=== PATIENT | male | born 1965 | race Caucasian/White ===

== ENCOUNTER → 2020-04-18 13:23 | Outpatient (BNVA) | payer OTHER, SELFPAY | PROVIDERS: PCP Internal Medicine; Visit Provider Internal Medicine | DX: R07.2 Precordial pain (principal); I25.10 Atherosclerotic heart disease of native coronary artery without angina pectoris; I10 Essential (primary) hypertension; E78.5 Hyperlipidemia, unspecified; Z95.1 Presence of aortocoronary bypass graft | CPT/HCPCS: 93005; 99212 ==

== ENCOUNTER 2020-04-19 11:59 | Outpatient (REF) | payer OTHER, SELFPAY ==
--- NOTE | ~2020-04-19 | XR_ITS ---
EXAMINATION: XR KNEE, RIGHT CLINICAL INFORMATION: Right knee pain. COMPARISON: None TECHNIQUE: Three views of the right knee. FINDINGS: There is no fracture, dislocation, or destructive process. There is [id number] suprapatellar effusion. Hoffa's fat pad appears normal. There is no joint narrowing or erosive change or visible chondrocalcinosis. Deep infrapatellar recess is preserved. Axial view patella shows no lateralization or tilting. XR/XR knee RT 3V IMPRESSION: [id number] suprapatellar effusion. No bony abnormality.
--- NOTE | ~2020-04-19 | XR_ITS ---
EXAMINATION: XR CHEST CLINICAL INFORMATION: R07.2 - Precordial pain COMPARISON: None TECHNIQUE: 2 views of the chest were obtained. FINDINGS: The lungs are clear. There is no pneumothorax, pleural reaction, airspace consolidation, or effusion. The heart is normal in size. The costophrenic sulci are clear. The hilar and mediastinal contours are normal. No acute bony abnormality. There are sternotomy wires present. XR/XR chest 2V IMPRESSION: Prior median sternotomy. Normal chest.
[2020-04-19 13:24] LABS: Alanine Aminotransferase 43 U/L (0-40); Albumin Level 4.4 g/dL (3.5-5.0); Alkaline Phosphatase 91 U/L (39-117); Aspartate Amino Transferase 26 U/L (5-37); Bilirubin Direct 0.3 mg/dL (0.0-0.5); Bilirubin Total 0.8 mg/dL (0.0-1.0); Cholesterol 148 mg/dL; HDL Cholesterol 46 mg/dL; LDL Cholesterol Calculated 84 mg/dl; Total Protein 7.1 g/dL (6.5-8.0); Triglycerides 93 mg/dL
== END 2020-04-19 12:00 | disposition home or self-care (01) ==
LOC: HO.LAB 11:59
PROVIDERS: Internal Medicine; PCP Internal Medicine; Visit Provider Internal Medicine
DX: R07.2 Precordial pain (principal); M25.561 Pain in right knee; Z95.1 Presence of aortocoronary bypass graft
CPT/HCPCS: 36415; 71046; 73562; 80061; 80076

== ENCOUNTER 2020-05-11 15:29 | Outpatient (REF) | payer OTHER, SELFPAY ==
--- NOTE | ~2020-05-11 | XR_ITS ---
EXAMINATION: XR SHOULDER, RIGHT CLINICAL INFORMATION: Right shoulder pain COMPARISON: Radiographs right shoulder 06/28/2019 TECHNIQUE: Right shoulder is imaged in 3 views. FINDINGS: No fracture, dislocation, destructive process. The glenohumeral joint appears normal. The acromioclavicular alignment is normal. Again, there is a borderline inferior spur at distal right clavicle. There are no visible rotator cuff calcifications. XR/XR shoulder RT min 2V IMPRESSION: 1. Borderline inferior spur distal right clavicle similar to prior study 06/28/2019. 2. No rotator cuff calcifications.
== END 2020-05-11 15:30 | disposition home or self-care (01) ==
LOC: HO.HMGCX 15:29
PROVIDERS: PCP Internal Medicine; Visit Provider Nurse Practitioner Family
DX: M25.511 Pain in right shoulder (principal)
CPT/HCPCS: 73030

== ENCOUNTER → 2020-05-24 13:52 | Outpatient (REF) | payer OTHER, SELFPAY ==
--- NOTE | 2020-05-24 13:55 | CA_ITS ---
Transthoracic Echocardiogram Patient (Last, First, Middle): Matheus Fraser, Gender: Male Date of : 1965 Age: 54 Procedure Date: 05/24/2020 Procedure Type: Transthoracic Echocardiogram Location: OP Height: 172.72 cm Weight: 108.86 kg BSA: 2.21 m2 Heart Rate: bpm BP: 130 / 80 mmHg Quality Tech: Referring MD: Michael Richard MD Cushion Installer: Pavel Tenorio MD Symptoms: I25.10 - Atherosclerotic heart disease of [place] coronary artery without angina pectoris Study Quality: Fair ECG Rhythm: Sinus Conclusions: - 1. Normal LV systolic function with impaired relaxation filling abnormality with inferior inferoseptal regional wall motion abnormality 2. Normal cardiac valvular Doppler 3. Normal RV systolic pressure 4. No pericardial effusion Findings Left Ventricle Normal left ventricular size and systolic function. There is mildly increased left ventricular wall thickness. The visually estimated ejection fraction is between 60-65%. Spectral Doppler is indicative of an impaired relaxation filling pattern. E/E prime ratio is between 8 and 15 consistent with indeterminate filling pressures. Wall Motion Rest Echo Findings The basal inferior and basal inferoseptal segments are hypokinetic. All other scored wall segments showed normal motion. Right Ventricle Normal right ventricular cavity size and systolic function. Atria The left atrium is likely dilated. There is lipomatous hypertrophy of the interatrial septum. There is no evidence of interatrial shunt. The right atrium is normal in size. Aortic Valve Normal aortic valve structure and function. There is no aortic valve stenosis. There is no aortic valve regurgitation. Mitral Valve Normal mitral valve structure and function. There is trace mitral valve regurgitation. There is no mitral valve stenosis. Pulmonic Valve The pulmonic valve is likely normal. There is trace pulmonic valve regurgitation. Tricuspid Valve Normal tricuspid valve structure. There is trace tricuspid valve regurgitation. The right ventricular systolic pressure is normal. The right ventricular systolic pressure is 19 mmHg. Normal right atrial pressure. There is no evidence of pulmonary hypertension. Great Vessels All visible segments of the aorta are normal in size. The pulmonary artery was not well visualized. Venous The inferior vena cava is normal in size and collapses greater than 50% with inspiration. Pericardium/Pleural There is no evidence of pericardial effusion. Prior Study Comparison Changes noted compared to prior study dated: 09/22/2019. Inferior and inferoseptal wall motion abnormality noted Measurements 2D Linear Measurements IVSd: 1.39 0.6-0.9/0.6-1.0 cm LVIDd: 4.62 3.9-5.3/4.2-5.9 cm LVIDd Index: 2.09 2.4-3.2/2.2-3.1 cm/m2 LVIDs: 2.94 2.0-3.6 cm LVPWd: 1.30 0.7-1.1 cm Ao Root: 3.20 2.1-3.5 cm LA Diam: 4.30 2.7-3.8/3.0-4.0 cm LAIDs Index: 1.95 1.5-2.3 cm/m2 LV Mass: 303.69 67-162/88-224 g LV Mass Index: 137.41 43-95/49-115 g/m2 LVOT Diam: 2.40 3.0+(-)1.3 cm Mitral Valve MV Pk E: 0.75 MV PK A: 0.63 MV Decel Time: 296.00 E/A: 1.20 E'Lateral: 13.90 E'Medial: 10.50 E/E' Med: 7.10 E/E' Lat: 5.40 PHT: 87.00 MVA PHT: 2.53 Decel [place]: 2.53 Aortic Valve AoV Pk [place]: 1.25 AoV Mn [place]: 0.83 AoV VTI: 0.27 AoV Pk Grad: 6.00 Aov Mn Grad: 3.00 ANNAMARIE Cont.VTI: 3.25 LVOT LVOT Pk [place]: 0.89 LVOT Mn [place]: 0.53 LVOT VTI: 0.19 LVOT Pk Grad: 3.00 LVOT Mn Grad: 1.00 LVOT Diam: 2.40 LVOT Area: 4.52 Diastolic Function MV Pk E: 0.75 MV Pk A: 0.63 E/A: 1.20 E'Medial: 10.50 E/E' Med: 7.10 E' Laterial: 13.90 E/E' Lat: 5.40 Tricuspid Valve TR Pk [place]: 1.97 TR Pk Grad: 16.00 RA Press: 3.00 RVSP: 19.00 Great Vessels Aorta Ao Root-2D: 3.20 2.0-3.7 cm Ao Asc: 3.60 2.1-3.4 cm Pulmonary Valve PV Pk [place]: 1.19 Peak PV Grad: 6.00 Updated in Other Vendor System with Status of Final Pavel Tenorio MD electronically signed on 05/25/2020 5:09:51 PM with status of Final
== END ==
LOC: HO.CARD 13:52
PROVIDERS: Visit Provider Internal Medicine
DX: R07.2 Precordial pain (principal); I25.10 Atherosclerotic heart disease of native coronary artery without angina pectoris
CPT/HCPCS: 93306

== ENCOUNTER → 2020-05-31 13:14 | Outpatient (BNVA) | payer OTHER, SELFPAY | PROVIDERS: PCP Internal Medicine; Visit Provider Internal Medicine | DX: I25.10 Atherosclerotic heart disease of native coronary artery without angina pectoris (principal); R07.2 Precordial pain; I10 Essential (primary) hypertension; E78.5 Hyperlipidemia, unspecified; Z95.1 Presence of aortocoronary bypass graft | CPT/HCPCS: 99212 ==

== ENCOUNTER 2023-03-21 09:30 | Outpatient (AMB) | payer OTHER, SELFPAY ==
--- NOTE | 2023-03-21 10:25 | AM.OFFWIN_ITS ---
Intake Vital Signs 03/21/23 10:26 Height 5 ft 8 in BMI Reason not done Patient refused/unable BP 116/80 Blood Pressure Location Lt brachial Position Sitting Pulse 67 Pulse Source Pulse Oximeter Temp 97.7 F Temp Source Temporal Artery Scan Pulse Oximetry (%) 98 Oxygen Delivery Method Room Air Intake Visit Reasons: EP LFT heel pain unable to stand/balance Intake Note: pt is here today for heel pain unable to stand/balance started Friday Patient Tobacco Use Status: Never used Tobacco Allergies aspirin Allergy (Unknown, Verified 03/21/23 10:26) hx of esophageal stricture gabapentin Allergy (Unknown, Verified 03/21/23 10:26) Depression ibuprofen Allergy (Unknown, Verified 03/21/23 10:26) hx of esophageal stricture lidocaine Allergy (Unknown, Verified 03/21/23 10:) Dizziness pregabalin [From Lyrica] Allergy (Unknown, Verified 03/21/23 10:26) Depression Medication List - Last Reconciled 03/21/23 by Mercedes Saldana NP acetaminophen 1,000 mg (2 x 500 mg) PO Q6H PRN aspirin 81 mg PO DAILY atorvastatin 80 mg PO DAILY carisoprodol 250 mg PO TID PRN metoprolol tartrate 25 mg PO BID omeprazole 20 mg PO DAILY 30 days Do you need a note to return to daycare/school/sports/work: Yes HPI HPI Comments History of Present Illness Details 57 Y/O male patient who presents to Walk -in clinic with c/o left heel pain. Pt believes he might have injured it at work this past Tu. Pain is sharp and tender to touch. He is unable to put weight on the foot. 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 Mother Hypertension Heart disease Social History Alcohol intake: current Alcohol intake frequency: holidays/special occasions only Alcohol type: beer Patient Tobacco Use Status: Never used Tobacco Review of Systems Const All systems reviewed & are unremarkable except as noted in HPI and below Physical Exam Vital Signs: Last Vital Signs Temp 97.7 F 03/21/23 10:26 Pulse 67 03/21/23 10:26 BP 116/80 03/21/23 10:26 Pulse Ox 98 03/21/23 10:26 Oxygen Delivery Method Room Air 03/21/23 10:26 Extrem Right lower extremity: normal to inspection Left lower extremity: full ROM (Limited ROM left foot due to pain), no joint enlargement and foot Details: normal capillary refill, tenderness Location: of the calcaneus and edema Location: of the dorsal foot and of the calcaneus Assessment & Plan Assessment & Plan (1) Injury of left heel: Code(s): S99.922A - Unspecified injury of left foot, initial encounter Qualifiers: Encounter type: initial encounter Qualified Code(s): S99.922A - Unspecified injury of left foot, initial encounter Plan: SHELLEY Applied Joe bandage and Foot/Ankle brace in the office Xray to r/o any Fx. Orders: Orders XR foot LT 2V Today S99.922A - Unspecified injury of left foot, initial encounter Medications: New acetaminophen 1,000 mg (2 x 500 mg) PO Q6H PRN 60 tabs 0RF pain S99.922A - Unspecified injury of left foot, initial encounter Coding Level of Care Code Est Pt Level 3 (30570) Diagnoses Injury of left heel, initial encounter S99.922A Encounter type: initial encounter Time Spent (min) 20
[2023-03-21 10:26] VITALS: BP 116/80; PULSE 67; TEMP 36.5; O2SAT 98
== END 2023-03-21 11:10 | disposition home or self-care (01) ==
PROVIDERS: PCP Internal Medicine; Visit Provider Nurse Practitioner Family
DX: S99.922A Unspecified injury of left foot, initial encounter (principal)
CPT/HCPCS: 99214

== ENCOUNTER 2023-03-21 10:42 | Outpatient (REF) | payer OTHER, SELFPAY ==
--- NOTE | ~2023-03-21 | XR_ITS ---
EXAMINATION: XR FOOT, LEFT CLINICAL INFORMATION: Unspecified injury of left foot. Left foot/heel pain. COMPARISON: None available. TECHNIQUE: AP, lateral, and oblique views of the left foot. FINDINGS: The bones and soft tissues are normal. No fracture. Alignment is anatomic. Joint spaces are maintained. A small retrocalcaneal enthesophyte is seen. XR/XR foot LT 2V IMPRESSION: Small retrocalcaneal enthesophyte. No visible acute fracture, dislocation or subluxation seen.
== END 2023-03-21 10:43 | disposition home or self-care (01) ==
LOC: HO.HMGCX 10:42
PROVIDERS: Visit Provider Nurse Practitioner Family
DX: S99.922A Unspecified injury of left foot, initial encounter (principal)
CPT/HCPCS: 73620

== ENCOUNTER 2023-03-25 13:04 | Outpatient (AMB) | payer OTHER, SELFPAY ==
[2023-03-25 13:10] VITALS: BP 118/80; PULSE 78; TEMP 36.3; O2SAT 98; BMI 33.4
--- NOTE | 2023-03-25 13:10 | MHC.OFFWIV ---
Intake Vital Signs 03/25/23 13:10 Height 5 ft 8 in Weight 220 lb BMI 33.4 BP 118/80 Blood Pressure Location Lt brachial Position Sitting Pulse 78 Pulse Source Pulse Oximeter Temp 97.3 F Temp Source Temporal Artery Scan Pulse Oximetry (%) 98 Oxygen Delivery Method Room Air Intake Visit Reasons: EP, left heel pain, not getting better (lobby) Intake Note: pt is here today for lft heel pain started 03/21 Patient Tobacco Use Status: Never used Tobacco Allergies aspirin Allergy (Unknown, Verified 03/25/23 13:10) hx of esophageal stricture gabapentin Allergy (Unknown, Verified 03/25/23 13:10) Depression lidocaine Allergy (Unknown, Verified 03/25/23 13:10) Dizziness pregabalin [From Lyrica] Allergy (Unknown, Verified 03/25/23 13:10) Depression Do you need a note to return to daycare/school/sports/work: No HPI HPI Comments History of Present Illness Details Patient is a 57-year-old male in today for a sick visit. He was in this walk-in clinic 4 days prior to today, for he will pain. He had an x-ray, which demonstrated a bone spur. Patient was given acetaminophen and told to rest and ice the affected limb. Patient states that he had 1 day where he was able to walk and bear weight on the limb, however, the following 2 days the pain increased to the point where he can no longer put weight on the affected limb. He denies trauma to the area. 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 Patient has no history of similar injury. States that at this point his heel is so tender that it hurts to touch even lightly. Has used acetaminophen with little relief. Has not yet followed up with his PCP. [facility] Medical History Anterior chest wall pain Atherosclerotic cardiovascular disease Essential hypertension GERD without esophagitis Obesity (BMI 30-39.9) Other and unspecified hyperlipidemia Pure hypercholesterolemia Right knee pain Right shoulder pain Strain of right inguinal muscle Surgical History History of discectomy S/P CABG x 2 Status post coronary artery bypass graft Family History Father No problems noted. Mother Hypertension Heart disease Social History Alcohol intake: current Alcohol intake frequency: holidays/special occasions only Alcohol type: beer Patient Tobacco Use Status: Never used Tobacco Review of Systems Const Details: Constitutional : No Weight loss, No Fever, No Chills, No Fatigue, No Malaise Cardiovascular : No Chest Pain, No SOB, No Dyspnea on Exertion, No Orthopnea, No Edema, No Palpitations Respiratory : No Cough, No Sputum, No Wheezing Gastrointestinal : No Nausea, No Vomiting, No Diarrhea, No Constipation, No abdominal Pain, No Hematochezia, No Melena Musculoskeletal : Admits left heel pain. Skin : No Skin Lesions, No rash Neuro : No Weakness, No Numbness, No Dizziness, No Headache Psych : No Anxiety/Panic, No Depression Heme/Lymph: No Bruising, No Bleeding,No Lymphadenopathy All other systems reviewed and are negative Physical Exam Vital Signs: Last Vital Signs Temp 97.3 F 03/25/23 13:10 Pulse 78 03/25/23 13:10 BP 118/80 03/25/23 13:10 Pulse Ox 98 03/25/23 13:10 Oxygen Delivery Method Room Air 03/25/23 13:10 BMI result Body Mass Index 33.4 Vital signs reviewed and stable Const Other: Appearance: Alert.? Oriented X3.? No acute distress.? CVS: Normal heart rate and rhythm.? Pulses normal plus 2. ? Respiratory: No respiratory distress.? Breath sounds normal.? Skin: Erythema over left heel. Some erythema on instep of left foot. Extremities: Pain to palpation of left heel. Pain with flexion and extension. Back: No midline tenderness, no C-spine tenderness, full range of motion, no CVA tenderness bilaterally Neuro: Oriented X 3.? No motor deficit.? No sensory deficit. CN 2-12 intact Assessment & Plan Assessment & Plan (1) Bone spur of foot: Comment: At previous visit 4 days prior patient had x-ray which demonstrated bone spur of the left heel. Patient has been given crutches at today's visit. Will draw labs. Patient has been instructed to follow-up with PCP. Will give referral to orthopedics. Will give meloxicam for pain relief. Patient has been instructed not to take NSAIDs this medication. Patient has been instructed on side effects of this medication. Code(s): M77.50 - Other enthesopathy of unspecified foot and ankle Plan: Orthopedic referral. Patient needs to follow-up with PCP. Plan Take your medications as prescribed. If you were prescribed antibiotics today, it is important that you take your medication to their entirety, do not skip any doses, do not finish them early. Follow-up with your primary care provider this week. Return to the emergency department with new or worsening symptoms. Such as fevers, chills, chest pain, shortness of breath, nausea, vomiting, dizziness, headache, vision changes, lethargy In case of emergency call 911 Orders: Orders Complete Blood Count Auto Diff Today Z13.0 - Encounter for screening for diseases of the blood and blood-forming organs and certain disorders involving the immune mechanism Uric Acid Today M79.672 - Pain in left foot Comprehensive Met. Panel Today Z91.89 - Other specified personal risk factors, not elsewhere classified Coding Level of Care Code Est Pt Level 3 (58168) Diagnoses Bone spur of foot M77.50 Time Spent (min) 25
== END 2023-03-25 14:26 | disposition home or self-care (01) ==
PROVIDERS: PCP Internal Medicine; Visit Provider Nurse Practitioner Primary Care
DX: M77.50 Other enthesopathy of unspecified foot and ankle (principal)
CPT/HCPCS: 99213

== ENCOUNTER 2023-03-25 13:58 | Outpatient (REF) | payer OTHER, SELFPAY ==
[2023-03-25 15:59] LABS: MANUAL DIFF FLAG NO
[2023-03-25 16:03] LABS: Basophils Percent Auto 0.5 % (0-2); Eosinophils Absolute Auto 0.2 X10*3/uL (0.0-0.4); Eosinophils Percent Auto 2.4 % (0-4); Hematocrit 46.6 % (42.0-52.0); Hemoglobin 16.3 g/dl (14.0-18.0); Imm Gran Abs Auto 0.03 X10*3/uL (0.00-0.03); Imm Gran Pct Auto 0.4 % (0.0-0.4); Lymphocytes Absolute Auto 1.5 X10*3/uL (1.2-4.9); Lymphocytes Percent Auto 19.1 % (20-40); Mean Corpuscular Hemoglobin 31.6 pg (27.0-33.0); Mean Corpuscular Volume 90.3 fL (80.0-98.0); Mean Platelet Volume 11.1 fL (9.4-12.4); Monocytes Absolute Auto 0.7 X10*3/uL (0.1-1.2); Monocytes Percent Auto 8.3 % (2-11); Neutrophils Absolute Auto 5.4 x10*3/uL (2.0-8.3); Neutrophils Percent Auto 69.3 % (45-73); Platelet Count 326 X10*3/uL (160-400); Red Blood Count 5.16 X10*6/uL (4.60-5.80); White Blood Count 7.8 X10*3/uL (4.8-10.8)
[2023-03-25 16:23] LABS: Alanine Aminotransferase 30 U/L (0-40); Albumin Level 4.1 g/dL (3.5-5.0); Alkaline Phosphatase 96 U/L (39-117); Anion Gap 12 (12-20); Aspartate Amino Transferase 21 U/L (5-37); Bilirubin Total 0.6 mg/dL (0.0-1.0); Blood Urea Nitrogen 14 mg/dL (9-16); Calcium 9.4 mg/dL (8.4-10.2); Carbon Dioxide 28 mmol/L (22-29); Chloride 105 mmol/L (96-108); Estimated Glomerular Filt Rate 58; Glucose Random 96 mg/dL (60-115); Potassium 3.9 mmol/L (3.3-5.1); Sodium 141 mmol/L (135-145); Total Protein 7.2 g/dL (6.5-8.0); Uric Acid 6.7 mg/dL (3.4-7.0)
== END 2023-03-25 13:59 | disposition home or self-care (01) ==
LOC: HO.HMGCLDS 13:58
PROVIDERS: PCP Physician Assistant; Visit Provider Nurse Practitioner Primary Care
DX: Z13.0 Encounter for screening for diseases of the blood and blood-forming organs and certain disorders involving the immune mechanism (principal); M79.672 Pain in left foot; Z91.89 Other specified personal risk factors, not elsewhere classified
CPT/HCPCS: 36415; 80053; 84550; 85025

== ENCOUNTER 2024-03-22 13:54 | Outpatient (AMB) | payer OTHER, SELFPAY ==
--- NOTE | 2024-03-22 13:58 | MHC.OFFWIV ---
Intake Vital Signs 03/22/24 13:59 Height 5 ft 8 in Weight 234 lb BMI 35.6 BP 122/90 H Blood Pressure Location Rt brachial Position Sitting Pulse 78 Pulse Source Pulse Oximeter Temp 98.8 F Temp Source Oral Pulse Oximetry (%) 97 Oxygen Delivery Method Room Air Intake Visit Reasons: EP cold, running nose, ? sinus infection, ? RSV Intake Note: Pt is here today c/o nasal congestion, sinus pressure and grandson recently dx with RSV Patient Tobacco Use Status: Never used Tobacco Allergies aspirin Allergy (Unknown, Verified 03/22/24 13:59) hx of esophageal stricture gabapentin Allergy (Unknown, Verified 03/22/24 13:59) Depression lidocaine Allergy (Unknown, Verified 03/22/24 13:59) Dizziness pregabalin [From Lyrica] Allergy (Unknown, Verified 03/22/24 13:59) Depression HPI HPI Comments History of Present Illness Details History The patient is a 58-year-old male presenting with symptoms of a potential upper respiratory infection and sinusitis. Symptom onset followed exposure to a household member with RSV and subsequent environmental exposure at a workplace known for less than ideal conditions. [place] symptoms include significant nasal discharge, facial and dental pain indicative of sinusitis, and substantial fatigue causing sleep disturbances. Despite the absence of fever, there is marked coughing and breathing difficulties. Ear fullness and dizziness are additional complaints, yet the patient lacks previous respiratory diagnoses such as asthma or COPD. Aspirin intake alleviated some headache symptoms. The patient's lifestyle involves close familial interactions, notably with a child recently afflicted by respiratory symptoms/RSV, emphasizing concern about infection control in the work environment. Physical Exam General: Cooperative, healthy appearing, comfortable and no acute distress Orientation/consciousness: Patient oriented x3 Limitations: No limitations Head: Normal to inspection Ears: Hearing cloudy bilaterally, external ears normal and TM's normal bilaterally, fluid bilaterally however no infection Nose: Normal external nose present, Normal nares present and No nasal discharge present Face and sinus: Normal facial exam and Sinuses tender maxiallary R>L Mouth: Normal oral and palatal mucosa present and moist mucous membranes Throat: Yes tonsils normal, Yes uvula midline. Posterior oropharynx erythema Eyes: Appearance normal, both eyes and all related structures Neck: Normal visual inspection Respiratory: Clear to auscultation bilaterally. Normal respiratory effort, able to speak in complete sentences, no respiratory distress, not tachypneic, no tripod positioning and no use of accessory muscles Cardiovascular: Regular rate and rhythm. Normal S1 and S2 Skin: No rashes or lesions noted Neuro: Patient oriented x3 Extremities: Normal to inspection and Yes no clubbing, cyanosis or edema PFSH Medical History Right shoulder pain Strain of right inguinal muscle Obesity (BMI 30-39.9) Pure hypercholesterolemia Anterior chest wall pain GERD without esophagitis Right knee pain Other and unspecified hyperlipidemia Essential hypertension Atherosclerotic cardiovascular disease Surgical History Status post coronary artery bypass graft S/P CABG x 2 History of discectomy Family History Father No problems noted. Mother Hypertension Heart disease Social History Alcohol intake: current Alcohol intake frequency: holidays/special occasions only Alcohol type: beer Patient Tobacco Use Status: Never used Tobacco Review of Systems Const All systems reviewed & are unremarkable except as noted in HPI and below Physical Exam Vital Signs: Last Vital Signs Temp 98.8 F 03/22/24 13:59 Pulse 78 03/22/24 13:59 BP 122/90 H 03/22/24 13:59 Pulse Ox 97 03/22/24 13:59 Oxygen Delivery Method Room Air 03/22/24 13:59 BMI result Body Mass Index 35.6 Assessment & Plan Assessment & Plan (1) URI, acute: Code(s): J06.9 - Acute upper respiratory infection, unspecified Plan: For the management of the reported upper respiratory infection and sinusitis, I will prescribe an albuterol inhaler for shortness of breath and Tessalon Perles to control coughing, specifically for nighttime symptoms and Flonase. The patient is advised to abstain from work, pending further diagnostic clarity and symptom resolution, to mitigate viral transmission risk. Hydration and vigilant symptom monitoring have been recommended to manage the respiratory condition effectively. The patient will follow up based on the outcome of respiratory tests and symptom progression, with detailed counseling on using a mask in public settings post-recovery to ensure public health safety. Patient was informed and verbally consented to the use of an ambient scribe for clinic note documentation during this visit Orders: Orders SARS-CoV2/FLU/RSV Today R09.89 - Other specified symptoms and signs involving the circulatory and respiratory systems Medications: New fluticasone propionate 50 mcg/actuation administer into each nostril 1 spray intranasal Q12H PRN 16 grams 0RF nasal congestion albuterol sulfate 90 mcg/actuation 2 puffs inhalation Q6H PRN 8.5 grams 0RF shortness of breath or wheezing or cough benzonatate 200 mg PO TID PRN 10 caps 0RF cough Coding Level of Care Code Est Pt Level 4 (66925) Diagnoses URI, acute J06.9
[2024-03-22 13:59] VITALS: BP 122/90; PULSE 78; TEMP 37.1; O2SAT 97; BMI 35.6
== END 2024-03-22 14:20 | disposition home or self-care (01) ==
PROVIDERS: PCP Physician Assistant; Visit Provider Physician Assistant
DX: J06.9 Acute upper respiratory infection, unspecified (principal)

== ENCOUNTER 2024-03-22 13:54 | Outpatient (REF) | payer OTHER, SELFPAY ==
[2024-03-22 18:45] LABS: Influenza A PCR NEGATIVE (Negative); Influenza B PCR NEGATIVE (Negative); Resp Syncy Virus RNA Qual PCR POSITIVE (Negative); SARS COV2 PCR INHOUSE NEGATIVE (Negative)
== END 2024-03-22 13:55 | disposition home or self-care (01) ==
LOC: HO.LAB 13:54
PROVIDERS: PCP Physician Assistant; Visit Provider Physician Assistant
DX: J06.9 Acute upper respiratory infection, unspecified (principal); R09.89 Other specified symptoms and signs involving the circulatory and respiratory systems
CPT/HCPCS: 0241U